=== PATIENT | male | born 1995 | race African-American/Black ===

== ENCOUNTER → 2016-09-15 | Outpatient (CLI) | payer OTHER ==
[~2016-09-15] MED LIST: CONRAY-43 43% 50ML VIAL (Q9960) As Ordered ONE; LIDOCAINE 1% MDV 20ML VIAL As Ordered ONE; TRIAMCINOLONE ACETONIDE SUSP 40 MG/ML VIAL (J3301) As Ordered ONE
--- NOTE | 2016-09-15 15:52 | REP ---
Right hip injection The procedure was performed under the direct supervision of Dr. Copeland. The benefits and risks including but not limited to pain infection and bleeding and anaphylaxis were explained to the patient and informed consent was obtained. The right femoral neck was localized using fluoroscopic guidance. The skin was prepped and draped in a sterile fashion. 1% lidocaine was used as a local anesthetic. Using fluoroscopic guidance a 22-gauge spinal needle was inserted and advanced to the femoral neck. 0.5 ml of Conray 43 was injected to verify placement. 10 ml of a solution containing 9 ml of 1% Xylocaine and 1 ml of Kenalog 40 mg was injected. The needle was then removed. The patient tolerated the procedure well and there were no immediate complications. 1 second of fluoro time was utilized for this procedure. Reviewed by ANDRA Carlos 09/15/2016 09:50 ASigned by Aman Copeland MD 09/15/2016 03:37 P
== END | disposition home or self-care (01) ==
LOC: M RADPRO 07:01
PROVIDERS: ATTEND Orthopaedic Surgery
DX: M70.61 Trochanteric bursitis, right hip (principal)
CPT/HCPCS: 20610; 77002; J3301; Q9960

== ENCOUNTER → 2016-12-20 | Outpatient (CLI) | payer OTHER ==
[~2016-12-20] MED LIST changes: -CONRAY-43 43% 50ML VIAL (Q9960) As Ordered ONE; -LIDOCAINE 1% MDV 20ML VIAL As Ordered ONE; +METHACHOLINE KIT (J7674) INH ONE; -TRIAMCINOLONE ACETONIDE SUSP 40 MG/ML VIAL (J3301) As Ordered ONE
== END ==
LOC: M CARPUL 08:29
PROVIDERS: ATTEND Nurse Practitioner Adult Health
DX: R06.02 Shortness of breath (principal)